=== PATIENT | female | born 1990 ===

== ENCOUNTER 2016-10-07 18:48 | Emergency (ER) | payer OTHER ==
[2016-10-07 18:59] VITALS: BP 104/62
--- NOTE | 2016-10-07 19:13 | UC ---
UC General HPI - HPI Summary HPI Summary: The patient comes in today for: 1. Vomiting/diarrhea/abdominal pain: Onset: 12 hours. Palliative/provocative: Nothing makes her symptoms better or worse. Quality: Nausea, and sharp abdominal pain. Region: RUQ and epigastric. Severity: 8/10 Time: Constant. Associated symptoms: Vomitin times with coffee ground material. Diarrhea: 120 times ("every 5 minutes around the clock."), and now "just clear liquid." Fevers: None. Previous digestive problems: Gastroenteritis "a couple weeks ago." Urination: 5 times today. Last time was "a couple hours ago." The color was light yellow. Last menstrual period: December 2014. She has her tubes tied. OTC Rx: no ibuprofen or NSAIDS. Caffeine: She drinks one 12-oz Redbull/day. Nictotine: None. No bleeding disorders. No bleeding from the gums. * - History of Current Complaint Chief Complaint: UCGI Stated Complaint: DIARRHEA/VOMITTING Time Seen by Provider: 10/07/16 19:06 Hx Obtained From: Patient - Allergy/Home Medications Allergies/Adverse Reactions: Allergies Allergy/AdvReac Type Severity Reaction Status Date / Time orange Allergy Hives, Uncoded 10/07/16 18:59 Throat Swelling, Itching PMH/Surg Hx/FS Hx/Imm Hx Previously Healthy: No - Anemia for unknown reasons. Endocrine History Of: Denies: Diabetes, Thyroid Disease, Hyperthyroidism, Hypothyroidism, Dyslipidemia Cardiovascular History Of: Denies: Cardiac Disorders, Hypertension, Pacemaker/ICD, Myocardial Infarction , Congestive Heart Failure, Atrial Fibrillation, Deep Vein Thrombosis, Bleeding Disorders Respiratory History Of: Denies: COPD, Asthma, Bronchitis, Pneumonia, Pulmonary Embolism GI/ History Of: Denies: Gastroesophageal Reflux, Ulcer, Gastrointestinal Bleed, Gall Bladder Disease, Kidney Stones, Diverticulitis, Renal Disease, Urosepsis Neurological History Of: Reports: Migraine - She has chronic headaches. Denies: TIA, CVA, Dementia, Seizures Psychological History Of: Reports: Depression - She states that she has this and a history of post depression. Denies: Anxiety, Bipolar Disorder, Schizophrenia, Post Traumatic Stress Disorder Cancer History Of: Denies: Lung Cancer, Colorectal Cancer, Breast Cancer, Prostate Cancer, Cervical Cancer - Surgical History Surgical History: Yes Surgery Procedure, Year, and Place: wisdom teeth 2007 - Family History Known Family History: Positive: Cardiac Disease - paternal grandparents, Hypertension - mother, Diabetes - father - Social History Occupation: Employed Full-time Alcohol Use: None Substance Use Type: None Substance Use Comment - Amount & Last Used: 16 ozs. Red Bull daily Smoking Status (MU): Never Smoked Tobacco Review of Systems Constitutional: Negative Skin: Negative Eyes: Negative ENT: Negative, Sore Throat Respiratory: Negative Cardiovascular: Negative Gastrointestinal: Abdominal Pain, Vomiting, Diarrhea Genitourinary: Negative All Other Systems Reviewed And Are Negative: Yes Physical Exam Triage Information Reviewed: Yes Appearance: Pain Distress - The patient is crying on and off during exam., Thin Vital Signs: Initial Vital Signs Temp 98.2 F 10/07/16 18:54 Pulse 114 10/07/16 18:54 Resp 16 10/07/16 18:54 BP 104/62 10/07/16 18:54 Pulse Ox 100 10/07/16 18:54 Eyes: Positive: Conjunctiva Clear, Discharge - Tears, but no purulent discharge. , Other: - No scleral icterus. ENT: Positive: Hearing grossly normal, Other: - Mucous membranes are red not pail and moist despite her having "about 100 clear diarrheic stools/day.". Negative: Pharyngeal erythema, Nasal congestion, Nasal drainage, TM bulging, TM dull, TM red Dental: Negative: Gross Decay/Caries @, Dental Fracture @ Neck: Positive: Supple, Nontender, No Lymphadenopathy. Negative: Nuchal Rigidity Respiratory: Positive: Chest non-tender, Lungs clear, No respiratory distress, No accessory muscle use. Negative: Crackles, Wheezing Cardiovascular: Positive: RRR, No Murmur Abdomen Description: Positive: No Organomegaly, Guarding - She had firmness-- mild guarding--to palpation of her RUQ and epigastric area. There is no obvious rebound, but there is percussion tenderness.. Negative: Nontender, Bruit, Distended, McBurney's Point Tenderness Musculoskeletal: Positive: Strength Intact, ROM Intact, No Edema. Negative: Strength Limited @ Neurological: Positive: Alert, Muscle Tone Normal Psychological: Positive: Normal Response To Family, Age Appropriate Behavior, Consolable Skin: Negative: rashes, breakdown Course/Dx - Course Course Of Treatment: Patient told of how I think that she should go to the ER for evaluation of her abdominal pain and possible upper GI bleed. She and her male pbx technician agreed. Both the patient and her male pbx technician wanted to go by private car. - Differential Dx - Multi-Symptom Provider Diagnoses: ABdominal pain (epigastric/RUQ): Diarrhea. Vomiting. Hematemesis - Physician Notifications Discussed Patient Care With: Dr. Correa Time Discussed With Above Provider: 19:29 Discharge - Discharge Plan Condition: Stable Disposition: AGAINST MEDICAL ADVICE Additional Instructions: Please go directly to the [facility] ER.
== END 2016-10-07 19:36 | disposition left against medical advice (07) ==
LOC: UCCORT 18:48
DX: R10.13 Epigastric pain (principal); R10.11 Right upper quadrant pain; R19.7 Diarrhea, unspecified; K92.0 Hematemesis
CPT/HCPCS: 99212; G0463